=== PATIENT | male | born 1980 | race Caucasian/White ===

== ENCOUNTER 2022-12-30 17:56 | Emergency (ER) | payer OTHER, SELFPAY ==
[2022-12-30] VITALS (23 sets, daily range): BP systolic 122–158; BP diastolic 73–111; PULSE 60–76; RESP 13–20; TEMP 36.7–36.8; O2SAT 97–100
--- NOTE | 2022-12-30 18:15 | ED.GENADUL_ITS ---
Discharge Plan Disposition Patient Disposition: Home Discharge Details Clinical Impression: Owens's palsy Primary Care Provider: Anthony Bruner ED Provider: Otis Gallegos Home Meds and New Rx's Prescriptions: New prednisone 20 mg tablet 60 mg PO DAILY 7 Days Qty: 21 0RF polyvinyl alcohol 1.4 % drops 1 drp ophthalmic (eye) BID Qty: 15 0RF No Action omeprazole 20 mg capsule,delayed release(DR/EC) 20 mg PO DAILY multivitamin Tablet 1 tab PO DAILY emtricitabine-tenofovir (TDF) [Truvada] 200-300 mg tablet 1 tab PO DAILY valacyclovir 500 mg tablet 500 mg PO DAILY omega-3 fatty acids [Fish Oil Concentrate] 1,000 mg capsule 1,000 mg PO DAILY Discharge Instructions Instructions: Owens Palsy (ED) Additional Instructions: Please take medications as prescribed. Please return to the emergency department for any worsening symptoms. Medical Decision Making 42-year-old male presents with left facial weakness that began approximately 30 minutes before arrival, noted blinking abnormally on left side followed by decreased movement of forehead and mouth on left side as well as strange sensation on tongue; no speech changes no weakness or numbness, no balance issues, patient has 5 out of 5 strength upper and lower extremities, noted to have decreased motion of left brow orbicularis labial fold on left clinical picture consistent with Owens's palsy. Lower suspicion for CVA. Patient does take Truvada as prophylaxis. No anticoagulation no trauma. Given endemic Lyme region will test for Lyme will send basic labs. 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 19: 59 patient resting comfortably no acute distress. Neurologically intact unchanged from arrival. Given House-Brackman scale of moderate Owens's palsy will start on oral prednisone. Patient to follow-up with his primary care physi shayna given home care instructions and return precautions. HPI General Date/Time Provider Initiated Documentation: 12/30/22 17:56 . HPI Narrative: 42-year-old male on Truvada for preexposure prophylaxis presents with left facial abnormality noted this evening, felt strange sensation on left eyelid and noted he was not blinking properly when he looked in the mirror also noted that the left side of his mouth was not moving normally as well as his brow line. Denies headache nausea vomiting chest pain weakness numbness or balance issues no change in speech however patient does have strength sensation in his tongue on the left side. No history of CVA no history of anticoagulation Related Data Home Medications Medication Instructions Recorded Confirmed multivitamin 1 tab PO DAILY 05/18/21 12/30/22 omeprazole 20 mg capsule,delayed 20 mg PO DAILY 05/18/21 12/30/22 release emtricitabine 200 mg-tenofovir 1 tab PO DAILY 05/31/21 12/30/22 disoproxil fumarate 300 mg tablet (Truvada) omega-3 fatty acids 1,000 mg 1,000 mg PO DAILY 05/31/21 12/30/22 capsule (Fish Oil Concentrate) valacyclovir 500 mg tablet 500 mg PO DAILY 05/31/21 12/30/22 polyvinyl alcohol 1.4 % eye drops 1 drp ophthalmic (eye) BID #15 mL 12/30/22 prednisone 20 mg tablet 60 mg PO DAILY 7 days #21 tabs 12/30/22 Previous Rx's Medication Instructions Recorded polyvinyl alcohol 1.4 % eye drops 1 drp ophthalmic (eye) BID #15 mL 12/30/22 prednisone 20 mg tablet 60 mg PO DAILY 7 days #21 tabs 12/30/22 Allergies Allergy/AdvReac Type Severity Reaction Status Date / Time naproxen Allergy Verified 12/30/22 18:06 General Stated Complaint: CVA/TIA NOAH: 3 Review of Systems Narrative: Review of Systems Constitutional: negative Eyes: negative ENT: negative Cardiovascular: negative Respiratory: negative Gastrointestinal: negative : negative Musculoskeletal: negative Skin: negative Neurologic: Facial abnormality Psych: negative PFSH All Active Problems (Updated 12/30/22 @ 20:00 by Otis Gallegos MD) Owens's palsy (Acute) Perforation of left tympanic membrane (Acute) Myringitis of left ear (Acute) Hx of knee surgery (Acute) History of tonsillectomy and adenoidectomy (Acute) Change in voice (Acute) Laryngopharyngeal reflux (Acute) Vocal fatigue (Acute) Globus sensation (Acute) Medical History Change in voice Globus sensation Laryngopharyngeal reflux Obstructive sleep apnea Vocal fatigue Surgical History History of tonsillectomy and adenoidectomy Hx of knee surgery Family History Father Heart disease Myocardial infarction Narcolepsy Diabetes Hypertension Mother Diabetes Heart disease Social History Smoking/Tobacco Use Status: Never Smoking risk assessment performed?: Yes Alcohol Intake: current Alcohol Intake frequency: a few times a week Drug use: Never Substance use type: does not use Household members: spouse current occupation: RAIL CAR [employer] Pets and animals: Yes Pets and animals: cat(s) What is your relationship status?: Panel score (0-1 are the most socially isolated patients): 1 Exam Narrative Exam Narrative: Physical Examination General: alert, awake, cooperative, resting comfortably, no acute distress HEENT: normocephalic, atraumatic; PERRL, EOM intact, conjunctiva normal; no nasal discharge; moist mucous membranes, oral and pharyngeal mucosa normal, tolerating secretions; TMs clear Neck: supple, trachea midline; full ROM Chest: normal to inspection Respiratory: normal respiratory effort, speaking in full sentences, clear to auscultation, no wheezing, rales or rhonchi Cardiac: regular rate, regular rhythm, S1S2 intact, no murmurs rubs or gallops GI: abdomen soft, non-tender, non-distended; no palpable mass or hepat osplenomegaly Skin: no lesions, rashes or trauma appreciated Neuro: AAOx3, normal speech, moving all extremities 5 out of 5 strength upper and lower extremities, decreased motion of left left orbicularis and left labial fold; no ataxia Psych: Appropriate mood and affect Course Vital Signs Vital signs: Vital Signs Temperature 36.8 C 12/30/22 18:00 Pulse 71 12/30/22 18:00 Respiratory Rate 17 12/30/22 18:00 Blood Pressure 158/111 H 12/30/22 18:00 Pulse Oximetry 100 12/30/22 18:00 Temperature 36.8 C 12/30/22 18:00 Temperature Source Oral 12/30/22 18:00 Pulse 71 12/30/22 18:00 Respiratory Rate 18 12/30/22 18:12 Respiratory Effort Normal, Non-Labored 12/30/22 18:12 Respiratory Depth Normal 12/30/22 18:12 Respiratory Pattern Normal 12/30/22 18:12 Blood Pressure 158/111 H 12/30/22 18:00 Pulse Oximetry 100 12/30/22 18:00 Pain Level 0 12/30/22 18:00 PAWSS Have you Been Recently Intoxicated or Drunk Within the Last 30 days?: No Have you Ever Experienced Previous Episodes of Alcohol Withdrawal?: No Have you ever Experienced Withdrawal Seizures?: No Have you ever Experienced Delirium Tremens(DT)s?: No Have you ever undergone Alcohol Rehabilitation Treatment (i.e, inpt ot outpatient treatment programs)?: No Have you ever Experienced Blackouts?: No Have you ever Combined Alcohol with other Downers within the last 90 days?: No Have you ever Combined Alcohol with any other Substance of Abuse during the last 90 days?: No Result: 0
[2022-12-30 18:36] LABS: Abs Immature Grans 0.01 10^3/uL (0.0-0.06); Absolute Basophil Count 0.08 10^3/uL (0.0-0.2); Absolute Eosinophil Count 0.32 10^3/uL (0.0-0.7); Absolute Monocyte Count 0.44 10^3/uL (0.1-0.8); Absolute Neutrophil Count 2.97 10^3/uL (1.2-6.7); Eosinophils % 4.2; HCT 50.4 % (40.0-50.0); HGB 17.9 g/dL (13.5-17.5); Immature Grans % 0.1; Lymphocytes % 49.9; MCHC 35.5 % (32.0-36.0); MCV 93 fL (80-95); MPV 9.5 fL (8.0-11.0); Monocytes % 5.8; Platelet Count 188 10^3/uL (130-400); RBC 5.42 10^6/uL (4.36-5.78); RDW 12.3 % (11.8-14.1); RDW-SD 42.2 fL; WBC 7.62 10^3/uL (4.4-10.8)
[2022-12-30 18:51] LABS: ALT 76 U/L (16-63); AST 102 U/L (15-37); Albumin 4.8 g/dL (3.4-5.0); Alkaline Phosphatase 65 U/L (46-116); BUN 15 mg/dL (7-18); Bilirubin, Total 0.7 mg/dL (0.2-1.0); CO2 27.1 mmol/L (21.0-32.0); CREATININE 1.2 mg/dL (0.70-1.30); Calcium 9.4 mg/dL (8.5-10.1); Estimated GFR 76.95 (mL/min/1.73m2); Glucose 108 mg/dL (74-106); Total Protein 8.5 g/dL (6.4-8.2)
[2022-12-30 18:56] LABS: Anion Gap 11.9 mmol/L (3-11); Chloride 101 mmol/L (98-107); Potassium 3.2 mmol/L (3.5-5.1); Sodium 140 mmol/L (136-145)
[2022-12-30] MEDS: predniSONE 20 MG TAB 60 MG PO (19:39)
[2023-01-01 10:31] LABS: Lyme Ab w Rflx to Lyme Confirm Negative (Negative)
[2023-01-03 18:11] LABS: Anaplasma phagocytophilum Negative (Negative); B. miyamotoi PCR Negative (Negative); Babesia divergens/MO-1 Negative (Negative); Babesia duncani Negative (Negative); Babesia microti Negative (Negative); Ehrlichia chaffeensis Negative (Negative); Ehrlichia ewingii/canis Negative (Negative); Ehrlichia muris eauclairensis Negative (Negative)
== END 2022-12-30 20:10 | disposition home or self-care (01) ==
PROVIDERS: Emergency Provider Emergency Medicine; PCP Family Medicine
DX: G51.0 Bell's palsy (principal)
CPT/HCPCS: 80053; 87798; 99283; 85025; 86618; 99284; J7512